=== PATIENT | female | born 2000 | race Caucasian/White ===

== ENCOUNTER 2021-03-28 00:51 | Emergency (ER) | payer OTHER, MEDICAID ==
[~2021-03-28] VITALS: Ht 162.6 cm; Wt 59.4 kg
[~2021-03-28 00:51] MED LIST: ADVAIR; ALBUTEROL INH; ALLEGRA30 MG; IBUPROFEN 800800 M1 PO; LORTABELXR PO; TAMIFLU OR
[2021-03-28 00:59] VITALS: BP 130/89
[2021-03-28 01:19] LABS: URINE BILIRUBIN NEGATIVE (Negative); URINE BLOOD 3+ (Negative); URINE CLARITY CLEAR; URINE COLOR YELLOW; URINE GLUCOSE-RANDOM NEGATIVE (Negative); URINE KETONES NEGATIVE (Negative); URINE LEUKOCYTES-REFLEX NEGATIVE (Negative); URINE NITRITE-REFLEX NEGATIVE (Negative); URINE PROTEIN NEGATIVE (Negative); URINE SPECIFIC GRAVITY >= 1.030 (1.005-1.030); URINE UROBILINOGEN 0.2 E.U./dl (0.2-1.0)
[2021-03-28 01:26] LABS: ABSOLUTE BASOPHILS 0.1 thou/uL (0.0-0.2); ABSOLUTE EOSINOPHILS 0.4 thou/uL (0.0-0.7); ABSOLUTE MONOCYTES 0.5 thou/uL (0.0-1.2); ABSOLUTE NEUTROPHILS 7.5 thou/uL (1.6-8.1); BASOPHILS 1.1 %; EOSINOPHILS 3.2 %; HEMATOCRIT 37.7 % (37.0-47.0); HEMOGLOBIN 12.5 gm/dL (12.0-15.0); LYMPHOCYTES 26.1 %; MCH 29.7 pg (26.0-34.0); MCHC 33.1 g/dL (28.0-37.0); MCV 89.5 fL (80.0-100.0); MONOCYTES 4.3 %; NUCLEATED RBCS 0 /100WBC; PLATELET COUNT* 278 thou/uL (150-400); POLYS 65.3 %; RBC 4.21 mil/uL (4.20-5.00); RDW-CV 14.9 % (10.5-14.5); WBC 11.5 thou/uL (4.0-11.0)
[2021-03-28 01:34] LABS: CALCIUM 8.8 mg/dL (8.5-10.1); CREATININE 0.7 mg/dL (0.6-1.3); POTASSIUM 3.6 mmol/L (3.5-5.1)
[2021-03-28 01:39] LABS: ALBUMIN 4.2 g/dL (3.4-5.0); TOTAL BILIRUBIN 0.5 mg/dL (<0.1-1.0); TOTAL PROTEIN 7.7 g/dL (6.4-8.2)
[2021-03-28 02:14] LABS: CASTS None Seen /LPF (None Seen); SQUAMOUS 4-10 Moderate /LPF (0-3); URINE WBC-REFLEX 0-5 Rare /HPF (0-5)
[2021-03-28 02:15] LABS: CRYSTALS None Seen /LPF (None Seen); URINE RBC 3-10 Few /HPF (0-2)
== END 2021-03-28 03:30 | disposition left against medical advice (07) ==
LOC: M.ERS 00:51
PROVIDERS: Emergency Medicine
DX: R10.30 Lower abdominal pain, unspecified (principal); Z53.21 Procedure and treatment not carried out due to patient leaving prior to being seen by health care provider; Z20.822 Contact with and (suspected) exposure to COVID-19

== ENCOUNTER 2021-03-28 03:32 | Emergency (ER) | payer OTHER, MEDICAID ==
[~2021-03-28] VITALS: Ht 162.6 cm; Wt 59.4 kg
[2021-03-28 05:03] VITALS: BP 117/90
== END 2021-03-28 05:03 | disposition home or self-care (01) ==
LOC: M.ERS 03:32
DX: O36.4XX0 Maternal care for intrauterine death, not applicable or unspecified (principal); O99.511 Diseases of the respiratory system complicating pregnancy, first trimester; Z3A.01 Less than 8 weeks gestation of pregnancy

== ENCOUNTER 2021-07-20 19:29 | Emergency (ER) | payer OTHER, MEDICAID ==
[~2021-07-20] VITALS: Ht 162.6 cm; Wt 56.7 kg
[2021-07-20 20:26] LABS: URINE BILIRUBIN NEGATIVE (Negative); URINE BLOOD 3+ (Negative); URINE CLARITY CLOUDY; URINE COLOR RED; URINE GLUCOSE-RANDOM TRACE (Negative); URINE KETONES TRACE (Negative); URINE LEUKOCYTES 2+ (Negative); URINE NITRITE POSITIVE (Negative); URINE PROTEIN 3+ (Negative); URINE SPECIFIC GRAVITY 1.025 (1.005-1.030); URINE UROBILINOGEN 0.2 E.U./dl (0.2-1.0)
[2021-07-20 20:35] LABS: BACTERIA 1-9 Few /HPF (None Seen); CASTS None Seen /LPF (None Seen); CRYSTALS None Seen /LPF (None Seen); MUCUS 4-6 Moderate strn/LPF (None Seen); SQUAMOUS 4-10 Moderate /LPF (0-3); URINE RBC >20 Many /HPF (0-2); URINE WBC 0-5 Rare /HPF (0-5)
[2021-07-20 21:11] LABS: HEMATOCRIT 34.8 % (37.0-47.0); HEMOGLOBIN 11.9 gm/dL (12.0-15.0); MCH 30.8 pg (26.0-34.0); MCHC 34.1 g/dL (28.0-37.0); MCV 90.2 fL (80.0-100.0); MPV 7.7 fl. (7.2-11.1); RBC 3.86 mil/uL (4.20-5.00); RDW-CV 13.5 % (10.5-14.5); WBC 7.7 thou/uL (4.0-11.0)
[2021-07-20 21:24] LABS: CALCIUM 8.7 mg/dL (8.5-10.1); CREATININE 0.7 mg/dL (0.6-1.3); POTASSIUM 4.1 mmol/L (3.5-5.1)
[2021-07-20] MEDS ORDERED: MEDROXYPROGESTE10 MG PO (22:20)
[2021-07-20 22:35] VITALS: BP 142/82
== END 2021-07-20 22:36 | disposition home or self-care (01) ==
LOC: M.ERS 19:29
PROVIDERS: Personal Emergency Response Attendant; Physician Assistant
DX: N93.8 Other specified abnormal uterine and vaginal bleeding (principal); J45.909 Unspecified asthma, uncomplicated